=== PATIENT | male | born 1980 | race Caucasian/White ===

== ENCOUNTER 2017-05-10 17:42 | Emergency (ER) | payer BC ==
[2017-05-10] MEDS: Aspirin 81 MG Tab.Chew PO ONE (18:01)
[2017-05-10 18:05] VITALS: BP 152/92
[2017-05-10 18:26] LABS: CHLORIDE,CL 101 mmol/L (101-111); SODIUM,NA 137 mmol/L (135-145)
--- NOTE | 2017-05-10 19:17 | EDM.PDOC ---
ED HPI GENERAL MEDICAL PROBLEM - General Chief Complaint: Chest Pain Stated Complaint: CHEST PAINS, [id number] Time Seen by Provider: 05/10/17 18:20 Source of Information: Reports: Patient History Limitations: Reports: No Limitations - History of Present Illness INITIAL COMMENTS - FREE TEXT/NARRATIVE: This 37 yo male patient reports to the ED with chest pain. The patient reports his chest pain started last night and has continued throughout today. The patient reports his current pain is "sharp twinges" of pain rated at a 4/10. The patient reports his pain was a 10/10 last night. The patient reports his pain has gotten better throughout the day. The patient reports he had 2 stents placed about 6 months ago causing him increased concerns. Onset Date: 05/09/17 Duration: Constant Location: Reports: Chest Quality: Reports: Ache, Dull Severity: Moderate Improves with: Reports: None Worsens with: Reports: None Associated Symptoms: Reports: No Other Symptoms Mid-Sternal Chest Pain Score (Numeric/FACES): 5 Headache Pain Score (Numeric/FACES): 8 - Related Data Allergies Allergy/AdvReac Type Severity Reaction Status Date / Time No Known Allergies Allergy Verified 03/23/16 04:49 Home Meds: Home Meds Albuterol [Proair HFA] 1 - 2 puff IH ASDIRECTED PRN 03/23/16 [History] Losartan [Cozaar] 50 mg PO DAILY 03/23/16 [History] Aspirin/Acetaminophen/Caffeine [Migraine Formula Caplet] 1 tab PO Q6HR PRN 10/17 [History] Budesonide [Pulmicort] 250 mcg NEB BID 10/17/16 [History] Glimepiride 1 mg PO DAILY 10/17/16 [History] Hydrochlorothiazide 50 mg PO DAILY 10/17/16 [History] Mometasone/Formoterol [Dulera 100-5 MCG] 1 puff IH BID 10/17/16 [History] atorvaSTATin [Lipitor] 40 mg PO BEDTIME 10/17/16 [History] Allopurinol [Zyloprim] 1 tab PO DAILY 05/10/17 [History] Carvedilol [Carvedilol] 1 tab PO BID PRN 05/10/17 [History] Clopidogrel Bisulfate [Clopidogrel] 75 mg PO DAILY 05/10/17 [History] Pantoprazole [Pantoprazole Sodium] 20 mg PO DAILY 05/10/17 [History] Tiotropium [Spiriva Handihaler] 1 cap INH DAILY 05/10/17 [History] Past Medical History HEENT History: Reports: None Cardiovascular History: Reports: Hypertension Respiratory History: Reports: Bronchitis, Recurrent, COPD Gastrointestinal History: Reports: None Genitourinary History: Reports: None Musculoskeletal History: Reports: None Neurological History: Reports: None Psychiatric History: Reports: None Endocrine/Metabolic History: Reports: Diabetes, Type II Hematologic History: Reports: None Immunologic History: Reports: None Oncologic (Cancer) History: Reports: None Dermatologic History: Reports: None - Infectious Disease History Infectious Disease History: Reports: Scarlet Fever - Past Surgical History Cardiovascular Surgical History: Reports: Coronary Artery Stent Social & Family History - Tobacco Use Smoking Status *Q: Never Smoker - Caffeine Use Caffeine Use: Reports: Tea - Recreational Drug Use Recreational Drug Use: No ED ROS GENERAL - Review of Systems Review Of Systems: ROS reveals no pertinent complaints other than HPI. ED EXAM, GENERAL - Physical Exam Exam: See Below Exam Limited By: No Limitations General Appearance: Alert, WD/WN, Mild Distress Eye Exam: Bilateral Eye: EOMI, Normal Inspection, PERRL Ears: Normal External Exam, Normal Canal, Hearing Grossly Normal, Normal TMs Nose: Normal Inspection, Normal Mucosa, No Blood Throat/Mouth: Normal Inspection, Normal Lips, Normal Teeth, Normal Gums, Normal Oropharynx, Normal Voice, No Airway Compromise Head: Atraumatic, Normocephalic Neck: Normal Inspection, Supple, Non-Tender, Full Range of Motion Cardiovascular: Normal Peripheral Pulses, Regular Rate, Rhythm, No Edema, No Gallop, No JVD, No Murmur, No Rub GI/Abdominal: Normal Bowel Sounds, Soft, Non-Tender, No Organomegaly, No Distention, No Abnormal Bruit, No Mass (Male) Exam: Deferred Rectal (Males) Exam: Deferred Back Exam: Normal Inspection Extremities: Normal Inspection, Normal Range of Motion, Non-Tender, Normal Capillary Refill, No Pedal Edema Neurological: Alert, Oriented, CN II-XII Intact, Normal Cognition, Normal Gait, Normal Reflexes, No Motor/Sensory Deficits Psychiatric: Normal Affect, Normal Mood Skin Exam: Warm, Dry, Intact, Normal Color, No Rash Lymphatic: No Adenopathy Course - Vital Signs Last Recorded V/S: Last Vital Signs Temp 36.1 C 05/10/17 18:03 Pulse 92 05/10/17 18:03 Resp 16 05/10/17 18:03 BP 152/92 H 05/10/17 18:03 Pulse Ox 100 05/10/17 18:03 - Orders/Labs/Meds Orders: Active Orders 24 hr Category Date Time Status EKG Documentation Completion [RC] URGENT Care 05/10/17 17:43 Active DRUG SCREEN URINE BIORAD [URCHEM] Stat Lab 05/10/17 17:43 Ordered UA W/MICROSCOPIC [URIN] Stat Lab 05/10/17 17:43 Ordered Labs: Laboratory Tests 05/10/17 05/10/17 Range/Units 18:00 18:00 WBC 11.2 H (5.0-10.0) 10^3/uL RBC 4.70 (4.6-6.2) 10^6/uL Hgb 13.3 L (14.0-18.0) g/dL Hct 40.1 (40.0-54.0) % MCV 85.3 (80-100) fL MCH 28.3 (27.0-34.0) pg MCHC 33.2 (33.0-35.0) g/dL Plt Count 342 (150-450) 10^3/uL Neut % (Auto) 73.0 (42.2-75.2) % Lymph % (Auto) 17.8 L (20.5-50.1) % [place] % (Auto) 6.9 (2-8) % Eos % (Auto) 1.9 (1.0-3.0) % Baso % (Auto) 0.4 (0.0-1.0) % Sodium 137 (135-145) mmol/L Potassium 4.0 (3.6-5.0) mmol/L Chloride 101 (101-111) mmol/L Carbon Dioxide 27.0 (21.0-31.0) mmol/L Anion Gap 13.0 BUN 8 (7-18) mg/dL Creatinine 0.8 (0.6-1.3) mg/dL Est Cr Clr Drug Dosing 125.20 mL/min Estimated GFR (MDRD) > 60 BUN/Creatinine Ratio 10.00 Glucose 120 H (74-105) mg/dL Calcium 9.0 (8.4-10.2) mg/dl Total Bilirubin 0.4 (0.2-1.0) mg/dL AST 23 (10-42) IU/L ALT 30 (10-60) IU/L Alkaline Phosphatase 91 (42-121) IU/L Troponin I < 0.02 (0.00-0.02) ng/ml Total Protein 7.3 (6.7-8.2) g/dl Albumin 4.0 (3.2-5.5) g/dl Globulin 3.3 Albumin/Globulin Ratio 1.21 Meds: Medications Discontinued Medications Generic Name Dose Route Start Last Admin Trade Name Freq PRN Reason Stop Dose Admin Aspirin 324 mg 05/10/17 17:53 05/10/17 18:01 Aspirin PO 05/10/17 17:54 324 mg ONETIME ONE Administration Departure - Departure Time of Disposition: 19:22 Disposition: Home, Self-Care 01 Condition: Fair Clinical Impression: Non-cardiac chest pain, Bronchitis Instructions: Nonspecific Chest Pain, Acute Bronchitis, Adult, [id number] Forms: ED Department Discharge Care Plan Goals: The patient was advised of the examination, lab, EKG and x-ray results during the visit. The patient was discharged with a script for Augmentin (165/125) to take 1 by mouth 3 times per day for 10 days. If the patient has any additional symptoms or concerns, the patient should follow-up with his primary care facility or return to the emergency department. - My Orders Last 24 Hours: My Active Orders 05/10/17 17:43 EKG Documentation Completion [RC] URGENT DRUG SCREEN URINE BIORAD [URCHEM] Stat UA W/MICROSCOPIC [URIN] Stat - Assessment/Plan Last 24 Hours: My Active Orders 05/10/17 17:43 EKG Documentation Completion [RC] URGENT DRUG SCREEN URINE BIORAD [URCHEM] Stat UA W/MICROSCOPIC [URIN] Stat
--- NOTE | 2017-05-11 23:25 | EKG ---
05/10/2017 - MICHELLE COLEY I reviewed the EKG and agree with the machine's reading. [facility] /[id number]
== END 2017-05-10 19:30 | disposition home or self-care (01) ==
LOC: DL.ED 17:42
DX: R07.89 Other chest pain (principal); J40 Bronchitis, not specified as acute or chronic; I10 Essential (primary) hypertension; E11.9 Type 2 diabetes mellitus without complications; Z79.899 Other long term (current) drug therapy
CPT/HCPCS: 36415; 71045; 80053; 80305; 81001; 84484; 85025; 93005; 99285; A9270

== ENCOUNTER 2021-08-10 12:14 | Emergency (ER) | payer BC ==
[2021-08-10] MEDS ORDERED: Aspirin 81 MG Tab.Chew PO ONE (12:28)
[2021-08-10 12:52] VITALS: BP 152/89; PULSE 84
[2021-08-10 13:06] LABS: ANION GAP 9.1 mEq/L (7-13); CHLORIDE,CL 97 mmol/L (98-107); SODIUM,NA 134 mmol/L (136-145)
[2021-08-10 13:33] LABS: CORONAVIRUS COVID-19 NAA NEGATIVE (NEGATIVE)
== END 2021-08-10 13:50 | disposition home or self-care (01) ==
LOC: DL.ED 12:14
DX: R07.9 Chest pain, unspecified (principal); J44.9 Chronic obstructive pulmonary disease, unspecified; I10 Essential (primary) hypertension; E11.9 Type 2 diabetes mellitus without complications; Z79.899 Other long term (current) drug therapy; Z79.82 Long term (current) use of aspirin; Z20.822 Contact with and (suspected) exposure to COVID-19
CPT/HCPCS: 0240U; 36415; 71045; 80053; 83605; 84484; 85025; 85379; 85610; 93005; 99285-25; A9270-GY

== ENCOUNTER 2021-11-25 16:15 | Emergency (ER) | payer BC ==
[2021-11-25] MEDS ORDERED: Nitroglycerin 0.4 MG Tab.SL SL PRN (16:31)
[2021-11-25] MEDS: Aspirin 81 MG Tab.Chew PO ONE (16:50)
[2021-11-25] MEDS: Sodium Chloride 0.9% 10 ML Syringe FLUSH PRN (16:50)
[2021-11-25 17:02] LABS: PTT,PARTIAL THROMBOPLSTIN TIME 27.9 SEC (22.0-34.0)
[2021-11-25 17:07] LABS: ANION GAP 14.3 mEq/L (7-13)
[2021-11-25] MEDS: LORazepam 1 MG Tab PO ONE (17:46)
[2021-11-25 17:58] LABS: CORONAVIRUS COVID-19 NAA NEGATIVE (NEGATIVE); RESPIRATORY SYNCYTIAL VIR NAA NEGATIVE (NEGATIVE)
[2021-11-25 18:16] VITALS: BP 112/85; PULSE 73
== END 2021-11-25 18:14 | disposition home or self-care (01) ==
LOC: DL.ED 16:15
DX: R07.9 Chest pain, unspecified (principal); I11.0 Hypertensive heart disease with heart failure; I50.9 Heart failure, unspecified; E11.9 Type 2 diabetes mellitus without complications; I25.10 Atherosclerotic heart disease of native coronary artery without angina pectoris; I25.2 Old myocardial infarction; Z20.822 Contact with and (suspected) exposure to COVID-19; Z79.899 Other long term (current) drug therapy
CPT/HCPCS: 0241U; 36415; 71045; 80053; 82150; 82947; 83690; 83880; 84484; 85025; 85379; 85610; 85730; 93005; 99285; A9270; J3490

== ENCOUNTER 2022-03-13 05:23 | Emergency (ER) | payer BC ==
[2022-03-13 05:22] VITALS: BP 134/86; PULSE 82
[2022-03-13] MEDS: Sodium Chloride 0.9% 10 ML Syringe FLUSH PRN (05:29)
[2022-03-13 05:47] LABS: ANION GAP 14.7 mEq/L (7-13)
[2022-03-13 05:55] LABS: PTT,PARTIAL THROMBOPLSTIN TIME 30.7 SEC (22.0-34.0)
== END 2022-03-13 09:57 | disposition home or self-care (01) ==
LOC: DL.ED 05:23
DX: R07.9 Chest pain, unspecified (principal); I10 Essential (primary) hypertension; E11.9 Type 2 diabetes mellitus without complications; I25.2 Old myocardial infarction; Z79.899 Other long term (current) drug therapy; Z79.82 Long term (current) use of aspirin; Z79.4 Long term (current) use of insulin; W22.8XXA Striking against or struck by other objects, initial encounter
CPT/HCPCS: 36415; 71045; 80053; 83880; 84484; 85025; 85610; 85730; 93005; 99285; J3490

== ENCOUNTER 2022-10-21 11:28 | Emergency (ER) | payer BC ==
[2022-10-21] MEDS ORDERED: Nitroglycerin 0.4 MG Tab.SL SL ONE (11:49)
[2022-10-21 11:54] LABS: BASOPHILS PERCENT AUTO 0.3 % (0.0-1.0); EOSINOPHILS PERCENT AUTO 2.1 % (1.0-3.0); HEMATOCRIT 43.3 % (40.0-54.0); HEMOGLOBIN 14.9 g/dL (14.0-18.0); LYMPHOCYTES PERCENT AUTO 18.7 % (20.5-50.1); MEAN CORPUSCULAR HEMOGLOBIN 28.7 pg (27.0-34.0); MEAN CORPUSCULAR HGB CONC 34.4 g/dL (33.0-35.0); MEAN CORPUSCULAR VOLUME 83.3 fL (80-100); MONOCYTES PERCENT AUTO 7.2 % (2-8); NEUTROPHILS PERCENT AUTO 71.7 % (42.2-75.2); PLATELET COUNT,PLT 252 10^3/uL (150-450); WHITE BLOOD CELL COUNT,WBC 9.8 10^3/uL (5.0-10.0)
[2022-10-21 12:16] LABS: ALBUMIN 3.6 g/dL (3.4-5.0); ANION GAP 13.4 mEq/L (7-13); BILIRUBIN TOTAL 0.3 mg/dL (0.2-1.0); BUN/CREATININE RATIO 9.5 (No establ ref range); C-REACTIVE PROTEIN 0.2 mg/dL (0.0-0.9); CALCIUM 8.8 mg/dL (8.5-10.1); CREATININE 1.05 mg/dL (0.70-1.30); EST CRCL DRUG DOSING (CG) 90.71 mL/min; MAGNESIUM 1.9 mg/dL (1.8-2.4); POTASSIUM,K 4.4 mmol/L (3.5-5.1); PROTEIN TOTAL,TP 7.3 g/dL (6.4-8.2)
[2022-10-21] MEDS ORDERED: Aspirin 325 MG Tab PO ONE (12:31)
[2022-10-21 16:06] VITALS: BP 141/99; PULSE 80
== END 2022-10-21 16:37 | disposition home or self-care (01) ==
LOC: DL.ED 11:28
DX: R07.89 Other chest pain (principal); F41.9 Anxiety disorder, unspecified; I10 Essential (primary) hypertension; I25.2 Old myocardial infarction; J44.9 Chronic obstructive pulmonary disease, unspecified; E11.9 Type 2 diabetes mellitus without complications; Z95.5 Presence of coronary angioplasty implant and graft; Z79.4 Long term (current) use of insulin; Z79.899 Other long term (current) drug therapy; Z79.82 Long term (current) use of aspirin; Z79.02 Long term (current) use of antithrombotics/antiplatelets
CPT/HCPCS: 36415; 71046; 80053; 83690; 83735; 84484; 85025; 86140; 93005; 99285; A9270; 93010; 99284